=== PATIENT | female | born 1980 | race Native Hawaiian/Other Pacific Islander ===

== ENCOUNTER 2018-11-13 18:24 | Emergency (ER) | payer OTHER ==
[~2018-11-13] VITALS: Ht 177.8 cm; Wt 98.9 kg
[~2018-11-13 18:24] MED LIST: CHLO50TA22 PO; CLARITIN10 M1 PO; CLINDAMYCIN HY300 MG PO; CVS SENNA8.6 MG PO; DOCU100C10 PO; ELIQUIS5 MG PO; FERROUS SULF325 M1 PO; LEVO0.08 PO; LITHIUM CARB300 MG PO; MIRALAX3350 N1 PO; MONT10TA PO; MURO 1282 % OPTH; RANI150T78 PO; SEROQUEL400 MG PO; TRILEPTAL150 MG PO
[2018-11-13 18:58] LABS: PLATELET COUNT 439 K/uL (152-353)
[2018-11-13 19:32] LABS: POTASSIUM 3.8 mmol/L (3.6-5.2); SODIUM 142 mmol/L (136-145)
[2018-11-13 20:00] VITALS: BP 148/87; TEMP 98.5
== END 2018-11-13 20:00 | disposition other institution (70) ==
LOC: ED 18:24
PROVIDERS: Family Medicine
DX: Z04.6 Encounter for general psychiatric examination, requested by authority (principal); F22 Delusional disorders; F31.89 Other bipolar disorder
CPT/HCPCS: 36415; 80053; 80307; 80320; 80329; 81000; 85027; 93005; 99285